=== PATIENT | male | born 1950 | race Caucasian/White ===

== ENCOUNTER 2016-12-21 18:57 | Emergency (ER) | payer OTHER ==
[2016-12-21 19:10] VITALS: RESP 18; TEMP 98.6
--- NOTE | 2016-12-21 19:43 | C.PDOC ---
History Of Present Illness 66 yr old male presents to the ER for evaluation of a painful lump to the rectum for the past 3 days. Patient states he has constipation and the pain is made worse with defecation. Patient also notes of a small non painful lump to the left side of the face for many months. Patient denies fever, chills, vision changes, abdominal pain, dysuria, back pain, weakness or numbness. Time Seen by Provider: 12/21/16 19:16 Chief Complaint (Nursing): GI Problem History Per: Patient History/Exam Limitations: no limitations Onset/Duration Of Symptoms: Days Past Medical History Reviewed: Historical Data, Nursing Documentation, Vital Signs Vital Signs: Last Vital Signs Temp 98.6 F 12/21/16 19:07 Pulse 83 12/21/16 20:42 Resp 18 12/21/16 20:42 BP 158/81 H 12/21/16 20:42 Pulse Ox 95 12/21/16 21:02 - Medical History PMH: Gastrointestinal Ulcer (peptic"diag. in [facility], no treatment), HTN ( recently diagnosed) Family History: States: No Known Family Hx - Social History Hx Tobacco Use: No Hx Alcohol Use: No Hx Substance Use: No - Immunization History Hx Tetanus Toxoid Vaccination: No Hx Influenza Vaccination: No Hx Pneumococcal Vaccination: No Review Of Systems Except As Marked, All Systems Reviewed And Found Negative. Constitutional: Positive for: Other ((+) Non painful lump to the left side of face.). Negative for: Fever, Chills Eyes: Negative for: Vision Change Gastrointestinal: Positive for: Other ((+) Painful lump to the rectum.). Negative for: Abdominal Pain Genitourinary: Negative for: Dysuria Neurological: Negative for: Weakness, Numbness Physical Exam - Physical Exam Appears: Non-toxic, No Acute Distress Skin: Warm, Dry, No Rash, Other ((+) Mobile, non tender, indurated mass to the left cheek. No fluctuance. No errythema. No warmth. ) Head: Atraumatic, Normacephalic Eye(s): bilateral: Normal Inspection Oral Mucosa: Moist Chest: Symmetrical, No Tenderness Cardiovascular: Rhythm Regular, No Murmur Respiratory: Normal Breath Sounds, No Rales, No Rhonchi, No Stridor, No Wheezing Rectal: Hemorrhoids (External hemorrhoid at the 5 and 6 oclock position. Minimal tenderness. No bleeding. No fluctuacne. ) Extremity: Normal ROM, No Swelling Neurological/Psych: Oriented x3, Normal Speech, Normal Motor ED Course And Treatment O2 Sat by Pulse Oximetry: 95 (RA) Pulse Ox Interpretation: Normal Progress Note: Pt is comfortable in ED, will d/c home with meds and follow up appointment Disposition Counseled Patient/Family Regarding: Diagnosis, Need For Followup, Rx Given - Disposition Disposition: HOME/ ROUTINE Disposition Time: 19:39 Condition: STABLE Additional Instructions: Please follow up in clinic Take meds as directed Return to ER if worse Prescriptions: Docusate Sodium [Colace] 100 mg PO TID #30 capsule Hydrocortisone [Anusol-HC] 25 mg RC BID #20 sup Ibuprofen [Motrin] 600 mg PO Q6H #20 tab Instructions: Hemorrhoids (ED) Forms: [employer] (Guyanese) - Clinical Impression Clinical Impression: External hemorrhoid - 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 - Scribe Statement The provider has reviewed the documentation as recorded by the Scribe Rosie Urena All medical record entries made by the Teresaibgiovani were at my direction and personally dictated by me. I have reviewed the chart and agree that the record accurately reflects my personal performance of the history, physical exam, medical decision making, and the department course for this patient. I have also personally directed, reviewed, and agree with the discharge instructions and disposition.
[2016-12-21 20:43] VITALS: BP 158/81; PULSE 83
[2016-12-21 20:59] VITALS: O2SAT 95
== END 2016-12-21 20:43 | disposition home or self-care (01) ==
LOC: C.ER 18:57
DX: K64.4 Residual hemorrhoidal skin tags (principal)

== ENCOUNTER 2018-03-10 09:13 | Emergency (ER) | payer OTHER ==
--- NOTE | 2018-03-10 10:02 | C.PDOC ---
History Of Present Illness 67-year-old male presents to the ED for evaluation of right ear foreign body sensation for 1 day. Denies fever, bleeding from the right ear, ear discharge, changes in hearing, and any other associated symptoms. Time Seen by Provider: 03/10/18 09:28 Chief Complaint (Nursing): Foreign Body History Per: Patient History/Exam Limitations: None Onset/Duration Of Symptoms: Days (x1) Current Symptoms Are (Timing): Still Present Quality (Ear): Foreign Body Anticoagulant/Antiplatlet Use?: No Past Medical History Reviewed: Historical Data, Nursing Documentation, Vital Signs Vital Signs: Last Vital Signs Temp 98 F 03/10/18 09:19 Pulse 91 H 03/10/18 09:19 Resp 18 03/10/18 09:19 BP 186/90 H 03/10/18 09:19 Pulse Ox 96 03/10/18 09:19 - Medical History PMH: Gastrointestinal Ulcer (peptic"diag. in [facility], no treatment), HTN (recently diagnosed) Family History: States: Unknown Family Hx - Social History Hx Tobacco Use: No Hx Alcohol Use: No Hx Substance Use: No - Immunization History Hx Tetanus Toxoid Vaccination: No Hx Influenza Vaccination: No Hx Pneumococcal Vaccination: No Review Of Systems Except As Marked, All Systems Reviewed And Found Negative. Constitutional: Negative for: Fever ENT: Positive for: Other ((+) right ear foreign body sensation. (-) bleeding from right ear. (-) changes in hearing. ). Negative for: Ear Discharge Physical Exam - Physical Exam Appears: Well, Non-toxic, No Acute Distress Skin: Normal Color, Warm, Dry Head: Atraumatic, Normacephalic Eye(s): bilateral: Normal Inspection Ear(s): Left: Normal, Right: Other (small foreign body in right ear canal.) Nose: Normal, No Discharge Oral Mucosa: Moist Throat: Normal, No Erythema, No Exudate Neck: Normal ROM, Supple Chest: Symmetrical Cardiovascular: Rhythm Regular, No Murmur Respiratory: Normal Breath Sounds, No Rales, No Rhonchi, No Wheezing Gastrointestinal/Abdominal: Normal Exam, Soft, No Tenderness Neurological/Psych: Oriented x3, Normal Speech, Normal Cognition ED Course And Treatment O2 Sat by Pulse Oximetry: 96 (RA) Pulse Ox Interpretation: Normal Procedure: Blank - Procedure Procedure:: right ear irrigation, foreign body removed from TM membrane, TM intact. - Consent obtained: Consent obtained: Verbal - Performed by: Performed by:: Attending physician - Patient Tolerated Procedure Patient Tolerated Procedure:: Well Medical Decision Making Medical Decision Making: Progress/Update: Patient stable for discharge home. Disposition - Disposition Disposition: HOME/ ROUTINE Disposition Time: 10:02 Condition: STABLE Additional Instructions: Follow up with ENT if problem worse Instructions: Removal of Foreign Body in Ear, Child Forms: [facility] (Ethiopian), Gen Discharge Inst Welsh - POA Present On Arrival: None - Clinical Impression Clinical Impression: Ear foreign body - Scribe Statement The provider has reviewed the documentation as recorded by the Scribe (Jodi Matt) Provider Attestation: All medical record entries made by the Scribe were at my direction and personally dictated by me. I have reviewed the chart and agree that the record accurately reflects my personal performance of the history, physical exam, medical decision making, and the department course for this patient. I have also personally directed, reviewed, and agree with the discharge instructions and disposition.
[2018-03-10 10:14] VITALS: BP 170/68; PULSE 82; RESP 16; TEMP 97.9
[2018-03-10 12:04] VITALS: O2SAT 96
== END 2018-03-10 10:13 | disposition home or self-care (01) ==
LOC: C.ER 09:13
DX: T16.1XXA Foreign body in right ear, initial encounter (principal); X58.XXXA Exposure to other specified factors, initial encounter; Y92.9 Unspecified place or not applicable